=== PATIENT | female | born 1980 | race Caucasian/White ===

== ENCOUNTER → 2021-10-24 | Outpatient (CLI) | payer OTHER ==
--- NOTE | 2021-10-29 06:49 | BMR ---
EXAMINATION TYPE: MR breast BILAT wo/w con DATE OF EXAM: 10/24/2021 COMPARISON: Outside bilateral breast mammogram October 08, 2021 HISTORY: Family history of malignant neoplasm of breast. Has breast implants TECHNIQUE: A series of fat and water weighted images in the long and short axis views of both breasts are obtained in conjunction with dynamic contrast MRI with subtraction technique. The patient was i njected with 6.5 mL intravenous Gadavist gadolinium contrast. Three-dimensional and additional post processing imaging is created on independent workstation and reviewed during official interpretation of this study. FINDINGS: Bilateral subpectoral saline implants redemonstrated. Heterogeneously dense fibroglandular tissue in the anterior to this bilaterally is again seen. T2 and STIR weighted imaging shows no signi ficant cystic mass or focal fluid collection. T1 axillary weighted images show no suspicious axillary adenopathy. Dynamic postcontrast imaging shows moderate to severe diffuse and nodular background enh ancement making evaluation suboptimal. Bilateral implant sizes are symmetric. No suspicious infolding or linguini sign to suggest intracapsular rupture. Delayed dynamic imaging shows no abnormal interna l mammary adenopathy. Both breasts show no pathologic enhancing masses. No abnormal skin thickening is seen bilaterally. Th e chest wall is intact. IMPRESSION: Some limitations due to extensive background enhancement. No convincing MRI evidence for invasive malignancy in either breast. BI-RADS 2 benign findings both breasts. Recommendation: Patient is due for annual bilateral breast mammogram September 2022 to be back on rosalie al schedule. Consider annual MRI evaluation.
== END | disposition home or self-care (01) ==
LOC: RADMRIMAIN 13:30
PROVIDERS: ATTEND Family Medicine
DX: Z98.82 Breast implant status (principal); Z80.3 Family history of malignant neoplasm of breast
CPT/HCPCS: 77049; C8937; A9585

== ENCOUNTER → 2025-01-28 | Outpatient (CLI) | payer OTHER ==
--- NOTE | 2025-01-28 13:27 | US ---
EXAMINATION TYPE: US venous doppler duplex LE LT DATE OF EXAM: 01/28/2025 1:05 PM COMPARISON: NONE CLINICAL INDICATION: Female, 44 years old with history of M79.662 PAIN IN LEFT LOWER LEG; trauma to l eg 2 weeks ago. Pain in left calf, Pain TECHNIQUE: The lower extremity deep venous system is examined utilizing real time linear array sonog jennifer with graded compression, color doppler sonography, and spectral doppler. SIDE PERFORMED: Left FINDINGS: VESSELS IMAGED: Common Femoral Vein Deep Femoral Vein Greater Saphenous Vein * Femoral Vein Popliteal Vein Small Saphenous Vein * Proximal Calf Veins (* superficial vessels) Attempted to call office twice, no answer. Left Leg: No evidence for DVT. Hypoechoic avascular area seen in left medial calf measuring 5.4 x 3. 0 x 0.4cm in patient's area of concern.. Consider hematoma. , Color Doppler imaging shows patency of the vessels. Spectral waveforms are within normal limits. IMPRESSION: 1. Left lower extremity ultrasound negative for deep venous thrombosis. 2. Hypoechoic area within the area of concern patient. Correlate for hematoma. [facility], , 01/28/2025 1:25 PM
== END | disposition home or self-care (01) ==
LOC: RADUSWWP 12:48
PROVIDERS: ATTEND Family Medicine
DX: M79.662 Pain in left lower leg (principal)